=== PATIENT | female | born 1970 | race Caucasian/White ===

== ENCOUNTER → 2021-09-15 | Outpatient (CLI) | payer BC | END | disposition home or self-care (01) | LOC: NPLAB 12:35 | PROVIDERS: ATTEND Nurse Practitioner Adult Health | DX: R05.1 Acute cough (principal); H65.01 Acute serous otitis media, right ear; R07.0 Pain in throat; Z20.822 Contact with and (suspected) exposure to COVID-19 | CPT/HCPCS: 87426 ==